=== PATIENT | female | born 1980 | race Caucasian/White ===

== ENCOUNTER → 2017-02-01 | Outpatient (CLI) | payer OTHER ==
--- NOTE | 2017-02-01 12:02 | EST ---
DATE OF SERVICE: 02/01/2017 AGE: 36Y SEX: F HT: 5'4" WT: 220 lbs. Protocol Armando: X Other: Stress Stage: 3 Dur. of Exercise: 9:23 *Heart Rate Blood Pressure *Rest: 77 Rest: 117/71 * *Max. Achieved: 165 Maximum BP: 136/70 85% PMHR: 156 100% PMHR: 184 *METS: 10.9 INDICATIONS: Chest pain. MEDICATIONS: Chantix. The test is being done to evaluate the cardiac status and chest pains. Baseline EKG showed sinus rhythm with normal CA interval and QRS duration. Blood pressure at rest is 117/71, pulse rate of 77. Patient walked on the Armando protocol for about 9 minutes, achieving a maximum heart rate of rate of 165 with blood pressure 136/70. EKGs taken during and after the exercise did not reveal any changes to suggest ischemia. FINAL IMPRESSION: 1. Negative stress test. 2. Patient did not experience any chest pain. 3. Patient's exercise capacity is good.
== END | disposition home or self-care (01) ==
LOC: RADNMMAIN 10:45
PROVIDERS: ATTEND Family Medicine
DX: R07.89 Other chest pain (principal)
CPT/HCPCS: 93017

== ENCOUNTER → 2017-07-23 | Outpatient (CLI) | payer OTHER ==
--- NOTE | 2017-07-24 07:14 | US ---
EXAMINATION TYPE: US pelvic complete DATE OF EXAM: 07/23/2017 COMPARISON: NONE CLINICAL HISTORY: Z97.5 IUD PLACEMENT. Patient stated has had IUD x 10 years and ordering physician bautista baxter not locate IUD, irregular menses; . TECHNIQUE: Transabdominal (TA) and Transvaginal (TV) was performed to better assess IUD placement Date of LMP: unsure as has intermittent spotting with IUD EXAM MEASUREMENTS: Uterus: 8.5 x 5.2 x 4.4 cm Endometrial Stripe: 0.7 cm Right Ovary: 5.0 x 2.2x x 2.2 cm Left Ovary: 2.9 x 2.0 x 2.3 cm 1. Uterus: Anteverted with multiple small Nabothian cysts in cervix; uterine fibroid noted as hypoec hoic oval mass at upper right myometrium = 1.2 x 1.7 x 1.2cm. 2. Endometrium: IUD is imaged in normal position at upper endometrium 3. Right Ovary: multiple follicles and a single cyst = 3.0 x 1.5 x 1.5cm containing a single thin se ptation 4. Left Ovary: multiple small follicles with largest = 1.0 x 0.9 x 0.6cm Spectral, color and waveform doppler imaging shows good arterial and venous flow within the ovaries ; there is no evidence for ovarian torsion. 5. Bilateral Adnexa: wnl 6. Posterior cul-de-sac: small amount of free fluid in cul de sac IMPRESSION: 1. Intrauterine device located within the central endometrium bridging the lower and upper uterine se gment, sonographically appropriately placed. 2. Intramural 1.7 cm leiomyoma. 3. Right ovarian cyst measuring 3.0 cm. 4. Small amount of free pelvic fluid, likely physiologic in nature.
== END | disposition home or self-care (01) ==
LOC: RADUSWWP 15:38
PROVIDERS: ATTEND Obstetrics & Gynecology
DX: Z09 Encounter for follow-up examination after completed treatment for conditions other than malignant neoplasm (principal); D25.1 Intramural leiomyoma of uterus; N83.201 Unspecified ovarian cyst, right side; Z97.5 Presence of (intrauterine) contraceptive device
CPT/HCPCS: 76830; 76856

== ENCOUNTER → 2021-06-30 | Outpatient (CLI) | payer OTHER ==
--- NOTE | 2021-06-30 10:23 | MM ---
Reason for exam: clinical finding. Baseline mammogram. History: Family history of breast cancer in paternal aunt at age 50. Taking hormonal contraceptives for 4 years. Indicated problem(s): palpable abnormality in the right breast. Physical Findings: Nurse Summary: 1 x 1cm nodule in the right upper outer quadrant (nurse ts). [facility] Diagnostic Mammo w CAD MARYAN Bilateral CC, MLO, and XCCL view(s) were taken. There are scattered fibroglandular densities. There is no discrete abnormality. ASSESSMENT: Incomplete: need additional imaging evaluation, BI-RAD 0 RECOMMENDATION: Ultrasound of the right breast.
--- NOTE | 2021-06-30 10:24 | USB ---
Reason for exam: additional evaluation requested from abnormal screening. History: Family history of breast cancer in paternal aunt at age 50. Taking hormonal contraceptives for 4 years. US Breast Limited RT Right limited breast ultrasound including focal area of concern, retroareolar and axilla demonstrates no cystic or solid lesion seen. These results were verbally communicated with the patient and result sheet given to the patient on 06/30/21. ASSESSMENT: Negative, BI-RAD 1 RECOMMENDATION: Routine screening mammogram of both breasts in 1 year. Manage patient on a clinical basis.
== END | disposition home or self-care (01) ==
LOC: RADMAMWWP 09:00
PROVIDERS: ATTEND Family Medicine
DX: R92.2 Inconclusive mammogram (principal); Z80.3 Family history of malignant neoplasm of breast
CPT/HCPCS: 77066